=== PATIENT | male | born 1960 | race Caucasian/White ===

== ENCOUNTER 2017-03-30 11:01 | Observation (INO) | payer OTHER ==
--- NOTE | ~2017-03-30 | HP ---
History And Physical [place] [address] [place]. [address] NAME: JO JOHNSON : 60 STATUS : ADM Bubba PAT#: [id number] AGE: 56 ADM/REG DATE : 03/30/17 MR#: [id number] REPORT SERV DATE: 03/30/17 DICTATED BY: CL HERNADEZ DATE: 03/30/17 REPORT STATUS : Draft TRANSCRIBED BY: MODMarcella DATE: 03/30/17 DATE OF ADMISSION: 03/30/2017 CHIEF COMPLAINT: Syncope. HISTORY OF PRESENT ILLNESS: The patient is a very pleasant 56-year-old white male. He states he was in his usual state of health until this morning. 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 It was witnessed. There was no seizure activity. No incontinence. He states he was feeling fine. Prior to that, he did not have any chest pain. He did not have any shortness of breath. He denies being overtly sweaty. He may have had a couple of episodes of loose stool yesterday. He has not had any nausea or vomiting. He has had no abdominal pain. No chest pain. No fevers. No real complaints. It was warm outside. He hit his head and now he has a headache and he had some nausea and vomiting when he arrived which has since resolved. PAST MEDICAL HISTORY: 1. Diverticulitis. 2. Nephrolithiasis. 3. Psoriatic arthritis. 4. Esophagitis. 5. Gastritis. 6. Duodenitis. 7. Colitis. 8. H. pylori. ALLERGIES: NO KNOWN DRUG ALLERGIES. SOCIAL HISTORY: Occasional alcohol but not consistent. No tobacco. He is and he works running a [employer]. SURGICAL HISTORY: An appendectomy and right knee surgery x2. FAMILY HISTORY: Mom had CAD in her 70s. Father had CAD in his 80s, and he has a brother who had CAD in his 70s. PREVENTIVE CARE: He had a nuclear stress test in 2011 that was negative and he says he is up to date on EGD and colonoscopy. HOME MEDICATIONS: Reviewed and attached. REVIEW OF SYSTEMS: Full 10-point review of systems obtained. Pertinent positives already mentioned in the HPI. PHYSICAL EXAMINATION: VITAL SIGNS: Blood pressure 163/96, temperature 98.0, sats 99%, pulse 87, and respiratory History And Physical [address] [address] NAME: JO JOHNSON : 60 STATUS : ADM Bubba PAT#: [id number] AGE: 56 ADM/REG DATE : 03/30/17 MR#: [id number] REPORT SERV DATE: 03/30/17 DICTATED BY: CL HERNADEZ DATE: 03/30/17 REPORT STATUS : Draft TRANSCRIBED BY: NATALIE DATE: 03/30/17 rate 20. LABORATORY DATA: Sodium 140, potassium 3.8, chloride 106, CO2 of 28, BUN and creatinine 8 and 1.05, and glucose 263. Troponin 0.02. Mag 2.0. CT of the head is negative. Coags are normal. H and H 13 and 39, white count 5.3, and platelets 228. Urinalysis is negative. EKG showed sinus rhythm with no acute ST-T wave changes. ASSESSMENT/PLAN: 1. Syncope, etiology not clear. We will check orthostatics. We will give a couple liters of normal saline. We will do an echocardiogram. Follow him on the tele bed. Watch for any additional symptoms. Cardiac enzymes are negative. EKG is unrevealing. No real GI symptoms or dehydration to explain although he does have diabetes mellitus which has not been treated, that could have led to some volume depletion. I will place him in observation status. If everything comes out negative, he could likely go home tomorrow. 2. Concussion as evidenced by headache and nausea and vomiting. His CT is negative. We would recommend analgesics and antiemetics. Gentle hydration. 3. New onset diabetes mellitus. We will start metformin level 1 sliding scale. Give the patient some IV fluids. Check his A1c, his TSH, get the assistant health educator to see him. 4. History of psoriatic arthritis. 5. History of diverticulosis. 6. Deep venous thrombosis prophylaxis. We will hold off since he had a fairly significant fall and hit his head. 7. Disposition pending above. DANIELA/NATALIE Cl Hernadez M.D. / [id number] CC: Elida Díaz M.D.
--- NOTE | ~2017-03-30 | DS ---
Discharge Summary [facility] [address] [place]. [address] NAME: JO JOHNSON : 60 STATUS : DIS Bubba PAT#: [id number] AGE: 56 ADM/REG DATE : 03/30/17 MR#: [id number] REPORT SERV DATE: 04/01/17 DICTATED BY: DATE: REPORT STATUS : Draft TRANSCRIBED BY: MODL DATE: 03/31/17 ADMISSION DATE: 03/30/2017 DISCHARGE DATE: 03/31/2017 DISCHARGE DIAGNOSES: 1. Syncope. 2. Concussion. 3. New-onset diabetes mellitus type 2. PROCEDURES AND IMAGIN. 03/30/2017, portable chest x-ray showed no acute cardiopulmonary abnormality. 2. 03/30/2017, CT of the brain without contrast showed normal noncontrast head CT. 3. 03/30/2017, x-ray of thoracic spine three views showed minimal osteophytes and no cervical acute abnormality. Thoracic spine, minimal anterior osteophytes. The vertebral heights are normal. No evidence of fracture, subluxation, focal lytic or blastic areas. 4. 03/31/2017, echocardiogram was within normal limits with left ventricular ejection fraction of 60%. HOSPITAL COURSE: Please refer to Dr. Ana Maria Atkinson H and P dated 03/30/2017 for complete details regarding the patient's admission. In brief, the patient was met by Dr. Atkinson for initial workup and management of the patient's syncopal episode. The patient has had uneventful hospital course. The patient did have a concussion as evidenced by a headache, nausea, and vomiting. The patient fell off a forklift after passing out and hit his head. The patient does have resultant neck pain. The patient has had a negative echo and all imaging has been negative. Of note, the patient has new-onset diabetes with hemoglobin A1c of 8.4. The patient will be discharged home with prescription for glucometer as well as lancets and strips with instructions to check his blood sugars before breakfast and at bedtime, and to take a log to his PCP upon discharge. The patient is on metformin 500 mg daily. Troponins x3 have been negative. PHYSICAL EXAMINATION: HEENT: Head is atraumatic, normocephalic. The patient does have an abrasion on his left cheek. No xanthelasma. Sclerae are clear. Nonicteric. Pupils are equal, round, and reactive to light and accommodation. Good dentition. NECK: Neck is stiff. No obvious thyromegaly or lymphadenopathy. Neck veins are flat. Neck exhibits tenderness bilaterally. CARDIAC: S1 and S2 with no obvious murmurs, rubs, or gallops. LUNGS: Lungs are clear to auscultation with normal respiratory effort. GI: Abdomen is soft and nontender with active bowel sounds in all four quadrants. Normal bowel habitus. No palpable organomegaly. EXTREMITIES: No significant edema, clubbing or cyanosis. Dorsalis pedis and posterior tibial pulses are palpable bilaterally. MUSCULOSKELETAL: Moves all extremities x4. Ambulatory without assistance. No difficulties with balance. SKIN: Skin is warm and dry with normal color and turgor. Discharge Summary [address] [address] NAME: JO JOHNSON : 60 STATUS : DIS Bubba PAT#: [id number] AGE: 56 ADM/REG DATE : 03/30/17 MR#: [id number] REPORT SERV DATE: 04/01/17 DICTATED BY: DATE: REPORT STATUS : Draft TRANSCRIBED BY: MODL DATE: 03/31/17 NEUROPSYCH: The patient is alert and oriented x4, pleasant and cooperative. Cranial nerves 2 through 12 are grossly intact. Affect is bright. No apparent anxiety or depression. DISCHARGE DIET: An 1800-calorie ADA diet. DISCHARGE MEDICATIONS: Metformin 500 mg daily with supper, Levbid 0.375 mg extended release twice daily, Voltaren 75 mg twice daily, Robaxin 750 mg p.o. q.i.d. p.r.n. neck pain or stiffness, ibuprofen 800 mg p.o. q.4 to 6 hours p.r.n., and omeprazole 20 mg daily x14 days. ALLERGIES: THE PATIENT HAS NO KNOWN DRUG ALLERGIES. DISCHARGE INSTRUCTIONS: The patient is to follow up with his PCP, Dr. Torres, in two weeks when the physician arrives back from vacation. Should the patient develop any more syncopal episodes, extreme pain, nausea, or vomiting or change in neck stiffness, the patient is to call PCP or present to the ER. The patient has been instructed to eat food with his ibuprofen as well as to take PPI during this time. Approximately 30 minutes has been spent coordinating discharge care of this patient including [id number] encounter and summarization of the discharge. DICTATED BY: BRIGETTE Hackett/MODL Cherie Holland NP / [id number] CC: Elida Díaz M.D.
[2017-03-30 09:57] LABS: BASOPHILS 0.6 %; BASOPHILS ABSOLUTE 0.03 10/3/uL (0.0-0.16); EOSINOPHILS 1.9 %; HEMATOCRIT 38.9 % (40.0-51.0); HEMOGLOBIN 13.4 g/dL (13.6-17.8); IMMATURE GRANULOCYTES 0.2 %; IMMATURE GRANULOCYTES ABSOLUTE 0.01 10/3/uL (0.0-0.11); LYMPHOCYTES 22.3 %; LYMPHOCYTES ABSOLUTE 1.17 10/3/uL (0.67-4.30); MEAN CORPUS HGB CONC 34.4 g/dL (32.0-36.0); MEAN CORPUSCULAR HEMOGLOB 32.6 pg (26.0-34.0); MEAN CORPUSCULAR VOLUME 94.6 fL (80-100); MONOCYTES 7.4 %; MONOCYTES ABSOLUTE 0.39 10/3/uL (0.21-1.20); NEUTROPHILS 67.6 %; NEUTROPHILS ABSOLUTE 3.55 10/3/uL (2.02-8.40); PLATELET COUNT 228 10/3/uL (150-400); RBC DISTRIBUTION WIDTH 13.1 % (12.0-16.0); RED CELL COUNT 4.11 10/6/uL (4.7-6.1); WHITE BLOOD CELLS 5.3 10/3/uL (4.5-10.5)
[2017-03-30 09:58] LABS: ER CBC TAT 0 Hrs 07 Mins; MANUAL DIFF NO %
[2017-03-30 10:04] LABS: INTERNATIONAL NORMAL RATI 1.1 UNITS (-); PARTIAL THROMBO TIME 27.3 SEC (22.5-37.2); PROTIME (NOT ORD) 14.3 SEC (12.0-14.5)
[2017-03-30 10:08] LABS: ASCORBIC ACID (UR NOT ORDER) NEG (NEG); BILIRUBIN, URINE NEGATIVE (NEG); ER URINALYSIS TAT 0 Hrs 08 Mins; KETONE, URINE NEGATIVE (NEG); LEUKOCYTE ESTERASE(NOT OR NEG (NEG); NITRITE (URINE) NEG (NEG); WBC (NOT ORDERED) (RFLEX) < 1 (0-5)
[2017-03-30 10:13] LABS: BUN (BLOOD UREA NITROGEN) 8 MG/DL (6-23); CALCIUM, SERUM 8.5 MG/DL (8.5-10.4); CHEST PAIN PROFILE TAT 0 Hrs 23 Mins; CHLORIDE, SERUM 106 MMOL/L (96-112); CO2 (CARBON DIOXIDE) 28 MMOL/L (24-34); CREATININE 1.05 MG/DL (0.70-1.30); GFR AFRICAN AMERICAN 92 ML/MIN (>=60); GFR NON AFRICAN AMERICAN 79 ML/MIN (>=60); GLUCOSE, SERUM 263 MG/DL (60-99); POTASSIUM, SERUM 3.8 MMOL/L (3.5-5.3); SODIUM, SERUM 140 MMOL/L (135-148); TROPONIN I <0.02 NG/ML (<0.05)
[~2017-03-30 11:01] MED LIST: DENIES HOME MEDS; LEVBID PO; PR25 PO; VOLT75 PO
[2017-03-30 16:43] LABS: TROPONIN I <0.02 NG/ML (<0.05)
[2017-03-31 05:59] LABS: BASOPHILS 0.3 %; BASOPHILS ABSOLUTE 0.02 10/3/uL (0.0-0.16); EOSINOPHILS 2.6 %; EOSINOPHILS ABSOLUTE 0.17 10/3/uL (0.0-0.53); HEMATOCRIT 37.5 % (40.0-51.0); HEMOGLOBIN 12.7 g/dL (13.6-17.8); IMMATURE GRANULOCYTES 0.2 %; IMMATURE GRANULOCYTES ABSOLUTE 0.01 10/3/uL (0.0-0.11); LYMPHOCYTES 34.8 %; LYMPHOCYTES ABSOLUTE 2.25 10/3/uL (0.67-4.30); MEAN CORPUS HGB CONC 33.9 g/dL (32.0-36.0); MEAN CORPUSCULAR HEMOGLOB 32.6 pg (26.0-34.0); MEAN CORPUSCULAR VOLUME 96.2 fL (80-100); MEAN PLATELET VOLUME 10.3 fL (9.2-13.0); MONOCYTES 9.1 %; MONOCYTES ABSOLUTE 0.59 10/3/uL (0.21-1.20); NEUTROPHILS ABSOLUTE 3.42 10/3/uL (2.02-8.40); PLATELET COUNT 216 10/3/uL (150-400); RBC DISTRIBUTION WIDTH 13.3 % (12.0-16.0); WHITE BLOOD CELLS 6.5 10/3/uL (4.5-10.5)
[2017-03-31 06:02] LABS: MANUAL DIFF NO %
[2017-03-31 06:13] LABS: BUN (BLOOD UREA NITROGEN) 6 MG/DL (6-23); CHLORIDE, SERUM 109 MMOL/L (96-112); CO2 (CARBON DIOXIDE) 27 MMOL/L (24-34); CREATININE 0.89 MG/DL (0.70-1.30); GFR AFRICAN AMERICAN 111 ML/MIN (>=60); GFR NON AFRICAN AMERICAN 96 ML/MIN (>=60); SODIUM, SERUM 141 MMOL/L (135-148)
[2017-03-31 06:15] LABS: GLUCOSE, SERUM 102 MG/DL (60-99)
[2017-03-31] MEDS ORDERED: IBU800 PO (12:45)
[2017-03-31] MEDS ORDERED: METHOC750B (12:46)
[2017-03-31] MEDS ORDERED: GLUCOPHXR PO (12:46)
== END 2017-03-31 13:09 | disposition home or self-care (01) ==
LOC: ER 11:01 → CDU1 11:43 → CDU2 12:40
PROVIDERS: Internal Medicine; Physician Assistant
DX: R55 Syncope and collapse (principal); S06.0X9A Concussion with loss of consciousness of unspecified duration, initial encounter; W17.89XA Other fall from one level to another, initial encounter; Y93.89 Activity, other specified; Y92.59 Other trade areas as the place of occurrence of the external cause; Y99.0 Civilian activity done for income or pay; E11.9 Type 2 diabetes mellitus without complications; L40.50 Arthropathic psoriasis, unspecified; Z87.81 Personal history of (healed) traumatic fracture; Z87.442 Personal history of urinary calculi; Z90.49 Acquired absence of other specified parts of digestive tract; Z98.890 Other specified postprocedural states; Z82.49 Family history of ischemic heart disease and other diseases of the circulatory system; Z79.1 Long term (current) use of non-steroidal anti-inflammatories (NSAID); Z79.899 Other long term (current) drug therapy
CPT/HCPCS: 70450; 71010; 72040; 72072; 80048; 81001; 82962; 83036; 83735; 84443; 84484; 85025; 85610; 85730; 93005; 96374; 96375; 99285; A9270-GY; C8929; G0378; J2405; Q9957